=== PATIENT | female | born 1955 | race Caucasian/White ===

== ENCOUNTER 2016-09-10 09:41 | Outpatient (CLI) | payer BC, OTHER | END 2016-09-10 09:42 | disposition home or self-care (01) | LOC: NAV LAB 09:41 | PROVIDERS: ATTEND Physician Assistant Medical | DX: B19.20 Unspecified viral hepatitis C without hepatic coma (principal) | CPT/HCPCS: 36415; 87522 ==

== ENCOUNTER 2017-10-04 07:23 | Emergency (ER) | payer BC, OTHER, SELFPAY ==
[2017-10-04] MEDS ORDERED: Acetaminophen 500 MG TAB ONE (07:56)
[2017-10-04] MEDS ORDERED: Ondansetron ODT 4 MG TAB ONE (07:56)
--- NOTE | 2017-10-04 08:21 | RAD ---
PA AND LATERAL VIEWS OF THE CHEST: HISTORY: Cough. FINDINGS: Comparison is made with the exam of 07/02/2013. The heart size is normal. The aorta is tortuous. Chronic changes are again seen, most prominent in t he upper lung zhang. No lobar consolidation, pneumothoraces, or pleural effusions identified. Dege nerative changes in the spine. IMPRESSION: No acute process. POS: [facility]
[2017-10-04 08:33] LABS: Bilirubin Small (Negative); Blood, Urine Negative (Negative); Clarity Clear (Clear); Glucose, Urine (Dipstick) Negative (Negative); Leukocyte Trace (Negative); Nitrite Negative (Negative); Protein, Urine (Dipstick) 100 mg/dL (Neg-Trace); Specific Gravity, Urine 1.025 (1.005-1.030)
[2017-10-04 08:40] LABS: Bacteria/HPF 1+ HPF (None Seen)
== END 2017-10-04 09:22 | disposition home or self-care (01) ==
LOC: NAV ERS 07:23
DX: J10.1 Influenza due to other identified influenza virus with other respiratory manifestations (principal); N39.0 Urinary tract infection, site not specified; I10 Essential (primary) hypertension; F41.9 Anxiety disorder, unspecified; Z87.891 Personal history of nicotine dependence
CPT/HCPCS: 71046; 81003; 81015; 87077; 87081; 87086; 87186; 87430; 87804; 94640; J7620; Q0162

== ENCOUNTER 2019-10-23 13:14 | Emergency (ER) | payer MEDICARE, SELFPAY ==
[2019-10-23] MEDS ORDERED: Sodium Chloride 0.9% 500 ML ONE (13:43)
[2019-10-23] MEDS ORDERED: Nitroglycerin 0.4 MG TAB (25 Tab Bottle) ONE (13:44)
[2019-10-23] MEDS ORDERED: Aspirin Chewable 81 MG TAB ONE (13:45)
[2019-10-23] MEDS ORDERED: Morphine 4 MG/ML VIAL ONE (13:45)
[2019-10-23 13:53] LABS: ALT (SGPT) 20 U/L (8-55); AST (SGOT) 27 U/L (5-34); Albumin 4.9 g/dL (3.4-4.8); Alkaline Phosphatase 56 U/L (40-110); Anion Gap 22 mmol/L (10-20); BUN (Urea Nitrogen) 23 mg/dL (9.8-20.1); Bilirubin, Total 0.4 mg/dL (0.2-1.2); CK (CPK) 105 U/L (29-168); Calc. Creatinine Clearance 0 mL/min (70-130); Calcium 10.8 mg/dL (7.8-10.44); Carbon Dioxide 19 mmol/L (23-31); Chloride 104 mmol/L (98-107); Estimated GFR-MDRD 55; Globulin 4.2 g/dL (2.4-3.5); Glucose 121 mg/dL (80-115); Lipase 39 U/L (8-78); Potassium 4.1 mmol/L (3.5-5.1); Protein, Total 9.1 g/dL (6.0-8.3); Sodium 141 mmol/L (136-145)
[2019-10-23] MEDS ORDERED: Ondansetron PF 4 MG/2 ML Vial ONE ×2 (13:53→15:11)
--- NOTE | 2019-10-23 13:55 | RAD ---
EXAM: Single view of the chest HISTORY: Chest pain COMPARISON: 10/04/2017 FINDINGS: Single view of the chest shows a normal sized cardiomediastinal silhouette. Increased inte rstitial markings are present. Scarring is seen in the left apex. There is no evidence of consolidation, mass, or pleural effusion. Degenerative changes are seen in the spine. IMPRESSION: No evidence of acute cardiopulmonary disease
[2019-10-23 14:05] LABS: Hemoglobin 17.3 g/dL (12.0-16.0); Mean Corpuscular HGB CONC 31.4 g/dL (32.0-36.0); Mean Corpuscular Hemoglobin 27.2 pg (27.0-31.0); Mean Corpuscular Volume 86.4 fL (78.0-98.0); Mean Platelet Volume 8.2 fL (7.4-10.4); Platelet Count 201 thou/uL (130-400); RBC Distribution Width 12.9 % (11.5-14.5); Red Blood Cell (RBC) Count 6.36 mill/uL (4.20-5.40); White Blood Cell (WBC) Count 12.8 thou/uL (4.8-10.8)
[2019-10-23] MEDS ORDERED: Nitroglycerin 2% Ointment 1 INCH/1 GM Packet ONE ×2 (14:06→14:07)
[2019-10-23 14:09] LABS: CKMB 3.2 ng/mL (0-6.6)
[2019-10-23 14:18] LABS: Band 1 % (5-11); Lymphocytes 44 % (21-51); MDiff Complete? YES; Neutrophil 54 % (42-75); Platelet Morphology Comment Appears Adequate; RBC Morphology Normal; Reactive Lymphocytes 1 % (0-10)
[2019-10-23] MEDS ORDERED: Metoprolol Tartrate 5 MG/5 ML VIAL ONE ×2 (14:43→16:47)
[2019-10-23 15:32] LABS: Bilirubin Negative (Negative); Blood, Urine Trace (Negative); Clarity Clear (Clear); Glucose, Urine (Dipstick) Negative (Negative); Leukocyte Negative (Negative); Nitrite Negative (Negative); Protein, Urine (Dipstick) Negative (Neg-Trace); Urobilinogen 0.2 mg/dL (Less than 2)
[2019-10-23 15:43] LABS: Bacteria/HPF Rare-Few HPF (None Seen); RBC/HPF 0-3 HPF (0-3); Squamous Epithelial 0-3 HPF (0-3); WBC/HPF 0-3 HPF (0-3)
[2019-10-23] MEDS ORDERED: Promethazine HCl 25 MG/ML VIAL ONE (15:44)
[2019-10-23] MEDS ORDERED: Mag-Al Plus 1200 MG/1200 MG/120 MG/30 ML UDCUP ONE (16:23)
[2019-10-23] MEDS ORDERED: Lidocaine Viscous Sol 2% 15 ml UD Cup ONE (16:23)
--- NOTE | 2019-10-23 16:26 | CT ---
CT arteriogram chest with IV contrast and 3-D imaging HISTORY: Chest pain. Dyspnea. FINDINGS: There is good contrast opacification of the pulmonary arteries and thoracic aorta. Througho ut each lung, prominent areas of linear and nodular scarring are present. Some of the areas of prominent nodularity and scarring containing dystrophic calcifications. Component of atelectasis at t he left upper lobe. Scattered emphysematous changes. No pleural fluid or pneumothorax. No mediastinal adenopathy. There is calcification in the arterial structures. IMPRESSION: No CT evidence of pulmonary embolus. Extensive widespread parenchymal scarring with the appearance of old healed, likely recurrent infecti ous process. Atherosclerosis.
[2019-10-23] MEDS ORDERED: hydrALAZINE 20 MG/ML VIAL ONE (16:58)
== END 2019-10-23 17:30 | disposition short-term general hospital (02) ==
LOC: NAV ERS 13:14
DX: I10 Essential (primary) hypertension (principal); R07.9 Chest pain, unspecified; F41.9 Anxiety disorder, unspecified; Z87.891 Personal history of nicotine dependence
CPT/HCPCS: 36415; 71045; 71275; 80053; 81003; 81015; 82550; 82553; 83690; 84484; 85025; 85379; 93005; 94760; 96361; 96365; 96375; 96376; J0360; J2270; J2405; J2550; J7050

== ENCOUNTER 2022-09-08 08:25 | Outpatient (CLI) | payer MEDICARE | END 2022-09-08 08:26 | disposition home or self-care (01) | LOC: NAV RAD 08:25 | PROVIDERS: ATTEND Nurse Practitioner Family | DX: M54.50 Low back pain, unspecified (principal) | CPT/HCPCS: 72100 ==

== ENCOUNTER 2024-02-02 09:57 | Outpatient (CLI) | payer MEDICARE | END 2024-02-02 09:58 | disposition home or self-care (01) | LOC: NAV RAD 09:57 | PROVIDERS: ATTEND Family Medicine | DX: M46.1 Sacroiliitis, not elsewhere classified (principal); M47.816 Spondylosis without myelopathy or radiculopathy, lumbar region; M43.16 Spondylolisthesis, lumbar region | CPT/HCPCS: 72100 ==